=== PATIENT | male | born 1945 | race Caucasian/White ===

== ENCOUNTER 2018-10-18 10:01 | Inpatient (IN) | payer MEDICARE, OTHER ==
[2018-10-18] MEDS: LACTATED RINGER'S 1,000 ML IV (11:06)
[2018-10-18] MEDS ORDERED: ONDANSETRON 4 MG INJ IV ×2 (12:30→19:00)
[2018-10-18] MEDS ORDERED: BISACODYL 10 MG SUPP PR (12:30)
[2018-10-18] MEDS ORDERED: CEPASTAT LOZENGE MT (12:30)
[2018-10-18] MEDS ORDERED: DIPHENHYDRAMINE 50 MG INJ IV ×2 (12:30→19:00)
[2018-10-18] MEDS ORDERED: CYCLOBENZAPRINE 10 MG TAB PO (12:30)
[2018-10-18] MEDS ORDERED: HYDROmorphONE 0.5 MG/0.5 ML SYG IV (12:30)
[2018-10-18] MEDS ORDERED: NALOXONE (0.4 MG/ML) INJ IV (12:30)
[2018-10-18] MEDS ORDERED: ACETAMINOPHEN 325 MG TAB PO (12:30)
[2018-10-18] MEDS ORDERED: DIPHENHYDRAMINE 25 MG CAP PO (12:30)
[2018-10-18] MEDS ORDERED: POLYMYXIN/BACITRACIN 1L IRRIG (12:44)
[2018-10-18] MEDS ORDERED: CEFAZOLIN 1 GM INJ ×2 (13:00→18:23)
[2018-10-18] MEDS ORDERED: SEVOFLURANE 15 MIN (13:00)
[2018-10-18] MEDS ORDERED: MIDAZOLAM 1 MG/ML 2 ML INJ (13:02)
[2018-10-18] MEDS: CEFAZOLIN 2 GM/50 ML (PMX) 50 ML IVPB (13:10)
[2018-10-18] MEDS: CEFAZOLIN 1 GM/50 ML (PMX) 50 ML IVPB ×2 (13:10→22:30)
[2018-10-18] MEDS: BUPIVACAINE 0.5%/EPI (SDV) 30 ML INJ (14:19)
[2018-10-18] MEDS: CA CHLORIDE 10% 10 ML SYRINGE (14:19)
[2018-10-18] MEDS: GELATIN SIZE 100 SPONGE (14:19)
[2018-10-18] MEDS: HEPARIN 1000 UNITS/ML 10 ML INJ ×2 (14:20)
[2018-10-18] MEDS: THROMBIN 5000 UNIT VIAL ×2 (14:21)
[2018-10-18] MEDS ORDERED: morphine 10 MG INJ (16:10)
[2018-10-18] MEDS: CEFAZOLIN 1 GM INJ ×2 (17:25)
[2018-10-18] MEDS ORDERED: PROPOFOL 20 ML (18:23)
[2018-10-18] MEDS ORDERED: ETOMIDATE 20 MG INJ (18:23)
[2018-10-18] MEDS ORDERED: LIDOCAINE 2% (SDV) 5 ML INJ (18:23)
[2018-10-18] MEDS ORDERED: ROCURONIUM 50 MG INJ (18:23)
[2018-10-18] MEDS ORDERED: ONDANSETRON 4 MG INJ (18:24)
[2018-10-18] MEDS ORDERED: FUROSEMIDE 20 MG INJ (18:40)
[2018-10-18] MEDS ORDERED: hydrALAzine 20 MG INJ IV (19:00)
[2018-10-18] MEDS ORDERED: LABETALOL HCL 20MG INJ IV (19:00)
[2018-10-18] MEDS ORDERED: METOCLOPRAMIDE 10 MG INJ IV (19:00)
[2018-10-18] MEDS ORDERED: MEPERIDINE 25 MG INJ IV (19:00)
[2018-10-18] MEDS ORDERED: HYDROmorphONE 1 MG/5 ML IV SYRINGE IV ×2 (19:00)
[2018-10-18] MEDS: HYDROmorphONE 0.2 MG/ML PCA IV (19:18)
[2018-10-18] MEDS: FENTAnyl 50 MCG/ML VIAL IV ×3 (19:27→22:34)
[2018-10-18] MEDS ORDERED: ZOLPIDEM 5 MG TAB PO (19:30)
[2018-10-18] MEDS: DILTIAZEM (CD) 180 MG CAP PO ×2 (21:00→22:33)
[2018-10-18] MEDS: DOCUSATE SODIUM 100 MG CAP PO ×2 (21:00→22:33)
[2018-10-18] MEDS: EZETIMIBE 10 MG TAB PO ×2 (21:00→22:33)
[2018-10-18] MEDS: D5W-0.45 NACL + KCL 20 MEQ 1,000 ML IV ×2 (22:05→22:29)
[2018-10-19] MEDS: CEFAZOLIN 1 GM/50 ML (PMX) 50 ML IVPB (05:09)
[2018-10-19 05:40] LABS: ADD MAN DIFF? NO
[2018-10-19 05:52] LABS: BASOPHIL # 0.1 10^3/ul (0.0-0.1); BASOPHILS % 0.6 % (0.0-2.0); EOSINOPHILS # 0.2 10^3/ul (0.0-0.5); EOSINOPHILS % 1.4 % (0.0-7.0); HEMATOCRIT 38.1 % (42.0-52.0); HEMOGLOBIN 12.6 g/dl (14.0-18.0); LYMPHOCYTES # 1.9 10^3/ul (0.8-2.9); LYMPHOCYTES % 16.5 % (15.0-51.0); MEAN CORPUSCULAR HEMOGLOBIN 29.2 pg (29.0-33.0); MEAN CORPUSCULAR HGB CONC 33.1 g/dl (32.0-37.0); MEAN CORPUSCULAR VOLUME 88.2 fl (82.0-101.0); MONOCYTE # 0.8 10^3/ul (0.3-0.9); MONOCYTES % 7.2 % (0.0-11.0); NEUTROPHIL # 8.5 10^3/ul (1.6-7.5); PLATELET COUNT 296 10^3/UL (140-415); RED BLOOD COUNT 4.32 10^6/ul (4.70-6.10); RED CELL DISTRIBUTION WIDTH 14.8 % (11.5-14.5)
[2018-10-19 05:52] LABS: WHITE BLOOD COUNT 11.4 10^3/ul (4.8-10.8)
[2018-10-19 06:21] LABS: ANION GAP 7 (5-13); BLOOD UREA NITROGEN 16 mg/dl (7-20); CALCIUM 7.8 mg/dl (8.4-10.2); CARBON DIOXIDE 28 mmol/L (21-31); CHLORIDE 105 mmol/L (97-110); CREATININE 0.75 mg/dl (0.61-1.24); GLUCOSE 94 mg/dl (70-220); MAGNESIUM 1.7 mg/dl (1.7-2.5); POTASSIUM 3.6 mmol/L (3.5-5.1); SODIUM 140 mmol/L (135-144)
[2018-10-19] MEDS: D5W-0.45 NACL + KCL 20 MEQ 1,000 ML IV ×2 (07:58→10:10)
[2018-10-19] MEDS: DOCUSATE SODIUM 100 MG CAP PO ×2 (08:52→21:10)
[2018-10-19] MEDS: METOPROLOL (XL) 25 MG TAB PO (08:52)
[2018-10-19] MEDS: LIDOCAINE 2% VISC 15 ML CUP TOP (12:14)
[2018-10-19] MEDS: MAGNESIUM SULFATE 2 GM/50 ML 50 ML IVPB (15:01)
[2018-10-19] MEDS: HYDROmorphONE 0.2 MG/ML PCA IV (16:53)
[2018-10-19] MEDS: DILTIAZEM (CD) 180 MG CAP PO (21:10)
[2018-10-19] MEDS: EZETIMIBE 10 MG TAB PO (21:10)
[2018-10-20] MEDS: DILTIAZEM (CD) 120 MG CAP PO (00:45)
[2018-10-20] MEDS: HYDROmorphONE 0.2 MG/ML PCA IV (03:05)
[2018-10-20] MEDS: LIDOCAINE 2% VISC 15 ML CUP TOP ×2 (03:28→09:21)
[2018-10-20] MEDS: D5W-0.45 NACL + KCL 20 MEQ 1,000 ML IV (04:05)
[2018-10-20 05:23] LABS: ADD MAN DIFF? NO
[2018-10-20 05:32] LABS: WHITE BLOOD COUNT 14.7 10^3/ul (4.8-10.8)
[2018-10-20 05:32] LABS: BASOPHIL # 0.1 10^3/ul (0.0-0.1); BASOPHILS % 0.5 % (0.0-2.0); EOSINOPHILS # 0.2 10^3/ul (0.0-0.5); EOSINOPHILS % 1.6 % (0.0-7.0); HEMATOCRIT 36.3 % (42.0-52.0); LYMPHOCYTES # 1.8 10^3/ul (0.8-2.9); LYMPHOCYTES % 12.2 % (15.0-51.0); MEAN CORPUSCULAR HEMOGLOBIN 29.3 pg (29.0-33.0); MEAN CORPUSCULAR HGB CONC 33.1 g/dl (32.0-37.0); MEAN CORPUSCULAR VOLUME 88.8 fl (82.0-101.0); MONOCYTE # 1.3 10^3/ul (0.3-0.9); MONOCYTES % 8.6 % (0.0-11.0); NEUTROPHIL # 11.2 10^3/ul (1.6-7.5); NEUTROPHILS % 76.8 % (39.0-77.0); PLATELET COUNT 268 10^3/UL (140-415); RED BLOOD COUNT 4.09 10^6/ul (4.70-6.10); RED CELL DISTRIBUTION WIDTH 14.6 % (11.5-14.5)
[2018-10-20 05:40] LABS: ANION GAP 4 (5-13); BLOOD UREA NITROGEN 13 mg/dl (7-20); CARBON DIOXIDE 30 mmol/L (21-31); CHLORIDE 100 mmol/L (97-110); CREATININE 0.74 mg/dl (0.61-1.24); GLUCOSE 98 mg/dl (70-220); MAGNESIUM 1.9 mg/dl (1.7-2.5); POTASSIUM 3.6 mmol/L (3.5-5.1); SODIUM 134 mmol/L (135-144)
[2018-10-20] MEDS: METOPROLOL (XL) 25 MG TAB PO (09:15)
[2018-10-20] MEDS: DOCUSATE SODIUM 100 MG CAP PO ×2 (09:48→20:56)
[2018-10-20] MEDS: AL HYDROX/MG HYDROX/SIMETH 30 ML CUP PO (09:53)
[2018-10-20] MEDS: HYDROCODONE/APAP (10/325) TAB PO ×3 (10:40→21:01)
[2018-10-20] MEDS ORDERED: LIDOCAINE 4% SOLUTION 50 ML BTL TOP (13:30)
[2018-10-20] MEDS: EZETIMIBE 10 MG TAB PO (20:56)
[2018-10-20] MEDS: DILTIAZEM (CD) 180 MG CAP PO (21:03)
[2018-10-21 05:49] LABS: ADD MAN DIFF? NO
[2018-10-21] MEDS: HYDROCODONE/APAP (10/325) TAB PO (05:49)
[2018-10-21 06:04] LABS: BASOPHIL # 0.1 10^3/ul (0.0-0.1); BASOPHILS % 0.4 % (0.0-2.0); EOSINOPHILS # 0.3 10^3/ul (0.0-0.5); EOSINOPHILS % 2.8 % (0.0-7.0); HEMATOCRIT 34.7 % (42.0-52.0); HEMOGLOBIN 11.3 g/dl (14.0-18.0); LYMPHOCYTES # 1.4 10^3/ul (0.8-2.9); MEAN CORPUSCULAR HEMOGLOBIN 28.9 pg (29.0-33.0); MEAN CORPUSCULAR HGB CONC 32.6 g/dl (32.0-37.0); MEAN CORPUSCULAR VOLUME 88.7 fl (82.0-101.0); MEAN PLATELET VOLUME 10.1 fl (7.4-10.4); MONOCYTES % 8.5 % (0.0-11.0); NEUTROPHIL # 9.1 10^3/ul (1.6-7.5); NEUTROPHILS % 75.9 % (39.0-77.0); PLATELET COUNT 248 10^3/UL (140-415); RED BLOOD COUNT 3.91 10^6/ul (4.70-6.10); RED CELL DISTRIBUTION WIDTH 14.6 % (11.5-14.5)
[2018-10-21 06:28] LABS: ANION GAP 4 (5-13); BLOOD UREA NITROGEN 10 mg/dl (7-20); CALCIUM 8.2 mg/dl (8.4-10.2); CARBON DIOXIDE 34 mmol/L (21-31); CHLORIDE 99 mmol/L (97-110); GLUCOSE 90 mg/dl (70-220); MAGNESIUM 2.1 mg/dl (1.7-2.5); POTASSIUM 3.8 mmol/L (3.5-5.1); SODIUM 137 mmol/L (135-144)
[2018-10-21] MEDS: DOCUSATE SODIUM 100 MG CAP PO (09:00)
[2018-10-21] MEDS: METOPROLOL (XL) 25 MG TAB PO (09:01)
== END 2018-10-21 10:33 | disposition home or self-care (01) | DRG 455 ==
LOC: REC 10:01 → MS1 19:44
PROC: 0SG00AJ Fusion of Lumbar Vertebral Joint with Interbody Fusion Device, Posterior Approach, Anterior Column, Open Approach (ICD-10-PCS; principal; 2018-10-18 12:00)
PROC: 0SG0071 Fusion of Lumbar Vertebral Joint with Autologous Tissue Substitute, Posterior Approach, Posterior Column, Open Approach (ICD-10-PCS; 2018-10-18 12:00)
PROC: 0ST20ZZ Resection of Lumbar Vertebral Disc, Open Approach (ICD-10-PCS; 2018-10-18 12:00)
PROC: 01NB0ZZ Release Lumbar Nerve, Open Approach (ICD-10-PCS; 2018-10-18 12:00)
PROC: 4A11X4G Monitoring of Peripheral Nervous Electrical Activity, Intraoperative, External Approach (ICD-10-PCS; 2018-10-18 12:00)
DX: M48.062 Spinal stenosis, lumbar region with neurogenic claudication (principal); M54.16 Radiculopathy, lumbar region; M43.16 Spondylolisthesis, lumbar region; M53.2X6 Spinal instabilities, lumbar region; E78.5 Hyperlipidemia, unspecified; E66.9 Obesity, unspecified; G47.30 Sleep apnea, unspecified; I25.10 Atherosclerotic heart disease of native coronary artery without angina pectoris; I10 Essential (primary) hypertension; I48.2 Chronic atrial fibrillation; L89.899 Pressure ulcer of other site, unspecified stage; Z79.01 Long term (current) use of anticoagulants; Z68.32 Body mass index [BMI] 32.0-32.9, adult; Z87.891 Personal history of nicotine dependence; Z95.5 Presence of coronary angioplasty implant and graft
CPT/HCPCS: 72110; 80048; 83735; 85025; 86999; 88304; 97110; 97116; 97163; 97530